=== PATIENT | female | born 1930 | race Two or more races ===

== ENCOUNTER 2017-07-17 12:53 | Inpatient (IN) | payer MEDICARE, OTHER ==
[~2017-07-17] VITALS: Ht 152.4 cm; Wt 66.5 kg
[2017-07-17] VITALS (7 sets, daily range): BP systolic 124–188; BP diastolic 73–98
--- NOTE | 2017-07-17 12:53 | NUR ---
PT ARRIVED AT 1247, NON RESPONSIVE, VSS, BIB [facility] FROM [facility] FOR [facility], UNKNOWN LAST WELL TIME. ACC. TO REPORT, SNF STAFF, PT BS 60,1 AMP OF D50 WAS GIVEN WITHOUT CHANGE TO PT MENTAL STATUS. MD AT BS, PT PUT ON MONITOR. NON RESPONSIVE FOR TACTILE STIMULATION.
--- NOTE | 2017-07-17 12:57 | NUR ---
1247- Pt in ER bed 17, Code stroke called by Dr. Lake 1256 - Pt registered in [facility], Code stroke orders placed by Dr. Lake
[2017-07-17] MEDS ORDERED: IV NS 0.9% 250 ML IV ONE (13:02)
[2017-07-17] MEDS ORDERED: CT SWABBABLE VALVE TRANS SET 1 EA INFUS.SET MC ONE (13:02)
[2017-07-17] MEDS ORDERED: IOHEXOL-350 100 ML VIAL IV ONE (13:02)
[2017-07-17 13:06] LABS: EOSINOPHILS # (AUTO) 0.1 /CMM (0.0-0.7); EOSINOPHILS % (AUTO) 0.5 % (0.0-6.0); HEMATOCRIT 22 % (33-45); LYMPHOCYTES # (AUTO) 0.4 /CMM (0.8-4.8); LYMPHOCYTES % (AUTO) 3.8 % (20.0-44.0); MEAN CORPUSCULAR HEMOGLOBIN 33 PG (26.0-33.0); MEAN CORPUSCULAR HGB CONC 31 g/dl (31.0-36.0); MEAN CORPUSCULAR VOLUME 107 fL (82-100); MONOCYTES # (AUTO) 0.7 /CMM (0.1-1.30); MONOCYTES % (AUTO) 6.6 % (2.0-12.0); NEUTROPHILS # (AUTO) 9.5 /CMM (1.8-8.9); NEUTROPHILS % (AUTO) 89.1 % (43.0-81.0); PLATELET COUNT (AUTO) 197 /CMM (150-450); RDW COEFFICIENT OF VARIATION 23.9 (11.5-15.0); RED BLOOD CELL COUNT(AUTO) 2.08 MIL/uL (4.0-5.2); WHITE BLOOD COUNT (AUTO) 10.7 K/uL (4.3-11.0)
[2017-07-17 13:08] LABS: HEMOGLOBIN 6.9 g/dL (11.5-14.8)
[2017-07-17 13:20] LABS: CALCIUM, SERUM 8.6 mg/dL (8.5-10.1); CARBON DIOXIDE 28 mmol/L (21-32); CHLORIDE 100 mmol/L (98-107); CREATININE 2.2 mg/dL (0.6-1.3); GLUCOSE 96 mg/dL (74-106); INR 1.06 (0.87-1.13); SODIUM SERUM 137 mmol/L (136-145); UREA NITROGEN, BLOOD 17 mg/dL (7-18)
[2017-07-17 13:24] LABS: CHOLESTEROL 130 mg/dL (<200); HDL CHOLESTEROL 106 mg/dL (40-60); LDL 23 mg/dL (0-99); TRIGLYCERIDES 34 mg/dL (30-150)
[2017-07-17 13:26] LABS: ALANINE AMINOTRANSFERASE 11 U/L (12-78); ALBUMIN 2.2 g/dL (3.4-5.0); ALKALINE PHOSPHATASE 100 U/L (46-116); ASPARTATE AMINOTRANSFERASE 31 U/L (15-37); BILIRUBIN,DIRECT 0.1 mg/dL (0.0-0.2); BILIRUBIN,TOTAL 0.4 mg/dL (0.2-1.0); LYMPHOCYTES % (MANUAL) 5 % (16-48); MONOCYTES % (MANUAL) 5 % (0-11.0); NEUTROPHILS % (MANUAL) 90 (42-76); TOTAL PROTEIN, SERUM 6.9 g/dL (6.4-8.2)
[2017-07-17 13:28] LABS: TROPONIN I 0.131 ng/mL (0.00-0.056)
[2017-07-17] MEDS ORDERED: DICY10CA13 PO (13:31)
[2017-07-17] MEDS ORDERED: LIDO30AD10 TP (13:31)
[2017-07-17] MEDS ORDERED: ERGO500040 PO (13:31)
[2017-07-17] MEDS ORDERED: ASPI-1152 PO (13:31)
[2017-07-17] MEDS ORDERED: LORA10TA68 PO (13:31)
[2017-07-17] MEDS ORDERED: INSU100I30 SQ (13:31)
[2017-07-17] MEDS ORDERED: ACET-868 PO (13:31)
[2017-07-17] MEDS ORDERED: HYDR-552 PO (13:31)
[2017-07-17] MEDS ORDERED: BEPO10DR EACHEYE (13:31)
[2017-07-17] MEDS ORDERED: PROT946L PO (13:31)
[2017-07-17] MEDS ORDERED: INSU100V11 SQ (13:31)
[2017-07-17] MEDS ORDERED: CILO50TA PO (13:31)
[2017-07-17] MEDS ORDERED: HYDR-4076 PO (13:31)
[2017-07-17] MEDS ORDERED: GABA-532 PO (13:31)
[2017-07-17] MEDS ORDERED: SENN-167 PO (13:31)
[2017-07-17] MEDS ORDERED: CLON0.1T PO (13:31)
[2017-07-17] MEDS ORDERED: CYCL30DR EACHEYE (13:31)
[2017-07-17] MEDS ORDERED: ASCO250T5 PO (13:31)
[2017-07-17] MEDS ORDERED: SEVE800T7 PO (13:31)
[2017-07-17] MEDS ORDERED: ATOR10TA PO (13:31)
[2017-07-17] MEDS ORDERED: POLY17PO4 PO (13:31)
[2017-07-17] MEDS ORDERED: CARV12.52 PO (13:31)
[2017-07-17] MEDS ORDERED: LEVO75TA7 PO (13:31)
[2017-07-17] MEDS ORDERED: ASPIRIN 300 MG/SUPP.RECT RC ONE ×2 (13:47→14:00)
--- NOTE | 2017-07-17 14:16 | NUR ---
PATIENT ASSIGNED TO TELE 120-1
[2017-07-17] MEDS ORDERED: IV NS 0.9% 1,000 ML IV PRN (14:50)
[2017-07-17] MEDS ORDERED: ZOLPIDEM TARTRATE 5 MG TABLET PO PRN (15:00)
[2017-07-17] MEDS ORDERED: ENOXAPARIN SODIUM 40 MG/0.4 ML DISP.SYRIN SQ SCH (15:00)
[2017-07-17] MEDS ORDERED: MAG HYDROX/AL HYDROX/SIMETH 30 ML UDC PO PRN (15:00)
[2017-07-17] MEDS ORDERED: ONDANSETRON HCL/PF 4 MG/2 ML VIAL IVP PRN (15:00)
[2017-07-17] MEDS ORDERED: HYDROCODONE/APAP 5/325MG 1 EACH TABLET PO PRN (15:00)
[2017-07-17] MEDS ORDERED: MAGNESIUM HYDROXIDE 30 ML UDC PO PRN (15:00)
--- NOTE | 2017-07-17 15:14 | NUR ---
REPORT GIVEN TO TAYLOR
[2017-07-17] MEDS ORDERED: DEXTROSE 50%-WATER 50 ML DISP.SYRIN IV PRN (15:30)
[2017-07-17] MEDS: ACETAMINOPHEN 325 MG TABLET PO PRN (16:26)
[2017-07-17] MEDS: BLOOD SUGAR DIAGNOSTIC 1 EACH STRIP IN SCH ×2 (16:27→21:47)
[2017-07-17] MEDS ORDERED: BLOOD SUGAR DIAGNOSTIC 1 EACH STRIP IN SCH ×2 (17:30→18:00)
--- NOTE | 2017-07-17 20:30 | NUR ---
SPOKE TO MD HOLA MD AWARE PT'S SBP 180-190'S, PT ON HD, WITH NEW ORDER TO D/C IV FLUIDS, AWARE OF SBP , GIVE HYDRALAZINE 10 MG IVP Q6HRS PRN IF SBP > 220, CALL MD IF PT WITH NEW ONSENT OF HEADACHE OR SOB NOTED. FAMILY AT BEDSIDE MADE AWARE.
[2017-07-17] MEDS: ATORVASTATIN 40 MG TABLET PO SCH (21:44)
[2017-07-17] MEDS: INSULIN REGULAR, HUMAN 100 UNIT/ML 3 ML VIAL SQ PRN (21:45)
[2017-07-17] MEDS: HEPARIN SODIUM, PORCINE 5000 UNITS/1 ML VIAL SQ SCH (21:46)
[2017-07-18] VITALS (11 sets, daily range): BP systolic 160–188; BP diastolic 47–89
[2017-07-18] MEDS: BLOOD SUGAR DIAGNOSTIC 1 EACH STRIP IN SCH ×6 (00:54→20:32)
--- NOTE | 2017-07-18 00:57 | NUR ---
1 UNIT PRBC TRANSFUSED, NO S/S OF ADVERSE REACTIONS NOTED.
[2017-07-18] MEDS ORDERED: hydrALAZINE HCL IV 20 MG VIAL IV PRN (01:30)
[2017-07-18] MEDS: ACETAMINOPHEN 325 MG TABLET PO PRN ×2 (01:42→08:09)
--- NOTE | 2017-07-18 07:16 | NUR ---
TD RN OPENING RECEIVED PATIENT [place] SPEAKING. NO SOB, DIFFICULTY BREATHING AND STATES PAIN IS MINIMAL AT THIS TIME AND DOES NOT NEED OR WANT ANY PAIN MEDICATIONS. PATIENT ON 3LPM NASAL CANULA 99% WILL TITRATE TOLERATED. PATIENT A/OX2-3 FORGETFUL AT TIMES HOWEVER PLEASANT. PATIENT NEEDS IN REACH. BED LOWERED AND LOCKED, RAILS UPX3 FOR SAFETY, BED ALARM ON, CALL LIGHT IN REACH. PATIENT APPEARS STABLE AT THIS TIME WILL ROUND NEEDED
[2017-07-18 07:37] LABS: CHOLESTEROL 128 mg/dL (<200); HDL CHOLESTEROL 89 mg/dL (40-60); LDL 33 mg/dL (0-99); TRIGLYCERIDES 59 mg/dL (30-150)
[2017-07-18 07:40] LABS: CALCIUM, SERUM 8.5 mg/dL (8.5-10.1); CARBON DIOXIDE 26 mmol/L (21-32); CHLORIDE 98 mmol/L (98-107); CREATININE 2.7 mg/dL (0.6-1.3); GLUCOSE 83 mg/dL (74-106); MAGNESIUM 1.9 mg/dL (1.8-2.4); PHOSPHORUS 3.9 mg/dL (2.5-4.9); POTASSIUM 3.1 mmol/L (3.5-5.1); SODIUM SERUM 133 mmol/L (136-145); UREA NITROGEN, BLOOD 19 mg/dL (7-18)
[2017-07-18 07:46] LABS: BASOPHILS # (AUTO) 0.1 /CMM (0.0-0.2); BASOPHILS % (AUTO) 0.7 % (0.0-2.0); EOSINOPHILS # (AUTO) 0.1 /CMM (0.0-0.7); EOSINOPHILS % (AUTO) 1.5 % (0.0-6.0); HEMATOCRIT 25 % (33-45); LYMPHOCYTES % (AUTO) 11.9 % (20.0-44.0); MEAN CORPUSCULAR HEMOGLOBIN 33 PG (26.0-33.0); MEAN CORPUSCULAR HGB CONC 33 g/dl (31.0-36.0); MEAN CORPUSCULAR VOLUME 101 fL (82-100); NEUTROPHILS # (AUTO) 6.5 /CMM (1.8-8.9); NEUTROPHILS % (AUTO) 74.9 % (43.0-81.0); PLATELET COUNT (AUTO) 176 /CMM (150-450); RDW COEFFICIENT OF VARIATION 25.3 (11.5-15.0); RED BLOOD CELL COUNT(AUTO) 2.42 MIL/uL (4.0-5.2); WHITE BLOOD COUNT (AUTO) 8.7 K/uL (4.3-11.0)
[2017-07-18] MEDS: ASPIRIN 81 MG TAB.CHEW PO SCH (08:04)
[2017-07-18] MEDS: HEPARIN SODIUM, PORCINE 5000 UNITS/1 ML VIAL SQ SCH ×2 (08:07→20:33)
[2017-07-18] MEDS: Z GUARD REMEDY 2 OZ OINT TP PRN (08:08)
--- NOTE | 2017-07-18 08:20 | NUR ---
TD RN NOTES MARY KATE FRAZIER RN AT BEDSIDE FOR EVAL.
--- NOTE | 2017-07-18 08:28 | NUR ---
WOUND CARE CONSULT: PT PRESENTS WITH ESCHARS TO RT ANTERIOR LOWER LEG AND LEFT HEEL, PRESENT ON ADMISSION. RECOMMENDATIONS MADE FOR SKIN PROTECTION AND DISCUSSED WITH NURSING STAFF. PT ON MULU ISOFLEX LOW AIRLOSS BED. CURRENT TRAVIS SCORE IS 14. WILL SEE PRN. GARCÍA IN AGREEMENT WITH PLAN OF CARE. Addendum: 07/18/17 at 0829 by MARY KATE CHILD WNDNU Amended: Links added.
--- NOTE | 2017-07-18 09:10 | NUR ---
TD RN NOTES DR PAREDES AT BEDSIDE FOR CONSULTATION
--- NOTE | 2017-07-18 09:36 | NUR ---
TD RN NOTES SPEECH THERAPIST AT BEDSIDE FOR EVAL
[2017-07-18 11:21] LABS: LYMPHOCYTES % (MANUAL) 10 % (16-48); MONOCYTES % (MANUAL) 7 % (0-11.0); NEUTROPHILS % (MANUAL) 79 (42-76)
--- NOTE | 2017-07-18 11:21 | NUR ---
TD RN NOTES PATIENT WORKING WITH PHYSICAL THERAPY
[2017-07-18 11:22] LABS: EOSINOPHILS % (MANUAL) 4 % (0-4)
[2017-07-18] MEDS ORDERED: LIDOCAINE 5% (PATCH) 1 EA PATCH TP PRN (11:30)
--- NOTE | 2017-07-18 12:20 | NUR ---
TD RN NOTES DR CAIN AT BEDSIDE. PER MD GIVE ORDERED HYDRALAZINE EVEN THOUGH PATIENT WILL GET HD WITHIN THE NEXT 2 OR SO HOURS. PATIENT SITTING IN CHAIR STABLE AT THIS TIME. PER MD OK TO ORDER ROBITUSSIN PRN PO Q6H 300MG FOR COUGH
[2017-07-18] MEDS: hydrALAZINE HCL 25 MG TABLET PO SCH ×3 (12:37→16:13)
[2017-07-18] MEDS: SEVELAMER CARBONATE 800 MG TABLET PO SCH ×2 (13:00→17:48)
[2017-07-18] MEDS ORDERED: GUAIFENESIN 300 MG/15 ML UDC PO PRN (13:00)
[2017-07-18] MEDS: PROSOURCE / PROSTAT (PYXIS) 30 ML UDC PO SCH ×2 (13:00→16:13)
[2017-07-18] MEDS: DICYCLOMINE HCL 10 MG CAPSULE PO SCH ×2 (13:00→16:13)
--- NOTE | 2017-07-18 13:14 | NUR ---
TD RN NOTES ASSISTED PATIENT BACK TO BED. HD RN FILIBERTO AT BEDSIDE. PATIENT STABLE 94% 1LPM NC.
--- NOTE | 2017-07-18 13:19 | NUR ---
TD RN NOTES SW AT BEDSIDE FOR EVAL
--- NOTE | 2017-07-18 13:42 | NUR ---
Central Station Operator Consult was requested from Dr. Payne in regards to stroke. Patient is an 87 year old Female who was admitted to [facility] for evaluation of an altered mental status. ADDY met with pt. and pt.s daughter Karlene ([phone]) at her bedside. Patient is oriented x2. Patient is aware of her name and situation. Patient denies any suicidal or homicidal ideation. Patient denies use of cigarettes, alcohol, or drugs. Per Dr. Og stroke was ruled out. ADDY spoke with ANNABELLE Pinto in regards to pt.s disposition and discharge plan. Plan: Patient will return to [facility] ([address] [place] [address]; ) to continue PT rehab.
[2017-07-18] MEDS: CILOSTAZOL 100 MG TABLET PO SCH ×2 (14:30→16:14)
[2017-07-18] MEDS: CARVEDILOL 12.5 MG TABLET PO SCH (16:13)
[2017-07-18] MEDS: SENNOSIDES 8.6 MG TABLET PO SCH (16:13)
[2017-07-18] MEDS: CLONIDINE HCL 0.1 MG TABLET PO PRN (17:48)
--- NOTE | 2017-07-18 17:50 | NUR ---
TD RN NOTES PATIENT BLOOD PRESSURE ELEVATED. GIVING PRN MEDICATION ORDERED. WILL MONITOR
--- NOTE | 2017-07-18 18:36 | NUR ---
TD RN CLOSING PATIENT STABLE. NO COMPLICATIONS NOTED. STABLE ON 1L NC. PATIENT WORKING WITH OT EVAL AND FAMILY AT BEDSIDE. PATIENT NEEDS IN REACH, BED LOWERED AND LOCKED, RAILS UPX3 FOR SAFETY AND BED ALARM ON. PATIENT STATES PAIN 1/10 AND TOLERABLE REFUSING TYLENOL AT THIS TIME.
--- NOTE | 2017-07-18 19:30 | NUR ---
RN INITIAL NOTES RECEIVED PT AWAKE ON BED, A/O X3, MAINLY ARABIC SPEAKING. FAMILY AT BEDSIDE. ON 2L NASAL CANNULA, SATURATING WELL, NO S/S OF RESP DISTRESS. CURRENTLY SB/SR ON THE MONITOR, HR 50-60'S. PT IS ANURIC. RIGHT CHEST WALL HD CATH INTACT. RIGHT FOREARM 20G IS FLUSHED AND PATENT, NO S/S OF INFILTRATION/INFECTION, DRESSING CDI. BED LOW AND LOCKED, SIDERAILS UP, CALL LIGHT WITHIN REACH. WILL MONITOR
[2017-07-18] MEDS: GABAPENTIN 100 MG CAPSULE PO SCH (21:11)
[2017-07-18] MEDS: ATORVASTATIN 40 MG TABLET PO SCH (21:12)
[2017-07-18] MEDS ORDERED: ATORVASTATIN 10 MG TABLET PO SCH (22:00)
[2017-07-19] VITALS: BP 189/69
[2017-07-19] MEDS: BLOOD SUGAR DIAGNOSTIC 1 EACH STRIP IN SCH ×6 (00:45→21:18)
--- NOTE | 2017-07-19 01:59 | NUR ---
RN NOTES NOTIFIED ON-CALL DR. ATKINSON OF PATIENT CURRENT BLOOD PRESSURE 189/69, HR 66. PER MD, GIVE HYDRALAZINE 10MG IVP ONE TIME.
[2017-07-19] MEDS ORDERED: hydrALAZINE HCL IV 20 MG VIAL IV ONE (02:00)
[2017-07-19 04:00] VITALS: BP 147/51
[2017-07-19 06:34] LABS: EOSINOPHILS # (AUTO) 0.2 /CMM (0.0-0.7); EOSINOPHILS % (AUTO) 2.3 % (0.0-6.0); HEMATOCRIT 24 % (33-45); LYMPHOCYTES # (AUTO) 1.8 /CMM (0.8-4.8); LYMPHOCYTES % (AUTO) 20.6 % (20.0-44.0); MEAN CORPUSCULAR HEMOGLOBIN 33 PG (26.0-33.0); MEAN CORPUSCULAR HGB CONC 33 g/dl (31.0-36.0); MEAN CORPUSCULAR VOLUME 102 fL (82-100); MONOCYTES # (AUTO) 0.8 /CMM (0.1-1.30); MONOCYTES % (AUTO) 9.6 % (2.0-12.0); NEUTROPHILS # (AUTO) 5.7 /CMM (1.8-8.9); NEUTROPHILS % (AUTO) 67.5 % (43.0-81.0); PLATELET COUNT (AUTO) 148 /CMM (150-450); RED BLOOD CELL COUNT(AUTO) 2.39 MIL/uL (4.0-5.2); WHITE BLOOD COUNT (AUTO) 8.5 K/uL (4.3-11.0)
--- NOTE | 2017-07-19 06:50 | NUR ---
RN CLOSING NOTES PT REMAINS STABLE OF THE MOMENT. ALL DUE MEDS GIVEN, AM CARE PROVIDED. WILL ENDORSE STEFANY TO AM RN
[2017-07-19 06:51] LABS: CALCIUM, SERUM 8.3 mg/dL (8.5-10.1); CARBON DIOXIDE 29 mmol/L (21-32); CHLORIDE 96 mmol/L (98-107); CREATININE 2.6 mg/dL (0.6-1.3); GLUCOSE 86 mg/dL (74-106); MAGNESIUM 1.9 mg/dL (1.8-2.4); POTASSIUM 3.3 mmol/L (3.5-5.1); SODIUM SERUM 134 mmol/L (136-145); UREA NITROGEN, BLOOD 16 mg/dL (7-18)
--- NOTE | 2017-07-19 07:15 | NUR ---
RN INITIAL NOTES: REC'D PT ASLEEP ON BED, NOT IN ANY DISTRESS, EASILY AROUSABLE, A/O X 3. ON NC AT 2LPM, NO SOB. ON TELEMONITOR, SR W/ HR 63 BPM. HAS RFA G20, SL, FLUSHING WELL, PATENT & INTACT W/ NO S/SX OF INFECTION/INFILTRATION NOTED. HAS RCW HD CATH IN PLACE. PROVIDED COMFORT & SAFETY MEASURES. BED KEPT LOW & IN LOCKED POS. CALL LIGHT PLACED W/IN REACH. WILL CONTINUE TO MONITOR & ATTEND PT NEEDS.
[2017-07-19 08:00] VITALS: BP 111/66
[2017-07-19] MEDS: hydrALAZINE HCL 25 MG TABLET PO SCH ×3 (08:27→17:22)
[2017-07-19] MEDS: SEVELAMER CARBONATE 800 MG TABLET PO SCH ×3 (08:27→17:21)
[2017-07-19] MEDS: ASPIRIN 81 MG TAB.CHEW PO SCH (08:27)
[2017-07-19] MEDS: LEVOTHYROXINE SODIUM 75 MCG TABLET PO SCH (08:27)
[2017-07-19] MEDS: SENNOSIDES 8.6 MG TABLET PO SCH ×2 (08:27→17:21)
[2017-07-19] MEDS: DICYCLOMINE HCL 10 MG CAPSULE PO SCH ×3 (08:28→17:21)
[2017-07-19] MEDS: CILOSTAZOL 100 MG TABLET PO SCH ×2 (08:29→17:21)
[2017-07-19] MEDS: CARVEDILOL 12.5 MG TABLET PO SCH ×2 (08:29→17:22)
[2017-07-19] MEDS: PROSOURCE / PROSTAT (PYXIS) 30 ML UDC PO SCH ×3 (08:29→17:24)
[2017-07-19] MEDS: POLYETHYLENE GLYCOL 3350 17 GM POWD.PACK PO SCH (08:29)
[2017-07-19] MEDS: HEPARIN SODIUM, PORCINE 5000 UNITS/1 ML VIAL SQ SCH (08:30)
[2017-07-19] MEDS: Z GUARD REMEDY 2 OZ OINT TP PRN (08:31)
[2017-07-19] MEDS: INSULIN REGULAR, HUMAN 100 UNIT/ML 3 ML VIAL SQ PRN ×4 (08:35→21:18)
[2017-07-19] MEDS ORDERED: LORATADINE 10 MG TABLET PO SCH (09:00)
[2017-07-19] MEDS ORDERED: ASPIRIN EC 81 MG TABLET.DR PO SCH (09:00)
[2017-07-19] MEDS: ACETAMINOPHEN 325 MG TABLET PO PRN ×2 (09:57→21:00)
--- NOTE | 2017-07-19 11:36 | NUR ---
RN NOTES: PT HAS HAD FREQUENT EPISODES OF NOSE BLEEDING (3X) AND HEMOPTYSIS X1. CALLED DHEERAJ KERNS. AWAITING FOR CB. Addendum: 07/19/17 at 1209 by TAYLOR ADAMS RN REC'D CALL BACK FROM [facility] W/ ORDERS TO STOP HEPARIN SQ & WILL SEE PT LATER. DTR MADE AWARE.
[2017-07-19 12:00] VITALS: BP_SYST 153; BP_SYST 156; BP_DIAS 52
[2017-07-19 16:00] VITALS: BP 111/59
[2017-07-19] MEDS ORDERED: POTASSIUM CHLORIDE 20 MEQ TAB.PRT.SR PO ONE (18:30)
[2017-07-19] MEDS ORDERED: DEXTROSE 50%-WATER 50 ML DISP.SYRIN IV PRN (19:00)
[2017-07-19] MEDS ORDERED: LORATADINE 10 MG TABLET PO PRN (19:00)
--- NOTE | 2017-07-19 19:00 | NUR ---
RN CLOSING NOTES: NO MORE EPISODE OF EPISTAXIS & HEMOPTYSIS LATER THIS PM. PT WAS ABLE TO REST. PT TOLERATED NC AT 2LPM, NO SOB. ON TELEMONITOR, STILL SR. RFA G20, SL, KEPT PATENT & INTACT W/ NO S/SX OF INFECTION/INFILTRATION NOTED. RCW HD CATH KEPT IN PLACE. JOANN ESQUEDA SEEN & EXAMINED THE PT. ALL QUESTION & CONCERNED OF THE FAMILY ADDRESSED BY THE PARAPROFESSIONAL AIDE TEACHER. RN AT BEDSIDE. KEPT WELL RESTED. NEEDS ATTENDED. BED KEPT LOW & IN LOCKED POS. CALL LIGHT PLACED W/IN REACH. ENDORSED TO PM RN FOR STEFANY.
[2017-07-19 20:00] VITALS: BP 158/64
[2017-07-19] MEDS: ATORVASTATIN 40 MG TABLET PO SCH (21:00)
[2017-07-19] MEDS: GABAPENTIN 100 MG CAPSULE PO SCH (21:01)
[2017-07-19] MEDS ORDERED: BLOOD SUGAR DIAGNOSTIC 1 EACH STRIP IN SCH (22:00)
--- NOTE | 2017-07-19 22:00 | NUR ---
TAPPER BIT - REC'D PT. ON O2/2L/NC-LUNG NETTLES HAVE DIM.RHONCHI TO AUSC. PT'S FAMILY AT BS/ASSISTING W/ADL'S. PT. STATES THAT SHE HAD RT.SIDED ABD PAIN. TYLENOL 650 MG/PO WAS ADM. AT 21:00 W/LITTLE RELIEF. PT. HAD MOD. BM & WAS ADM. A PARTIAL BEDBATH W/FAUSTO CARE GIVEN. PT.IS REFUSING A BEDBATH TILL AFTER BREAKFAST TOMORROW AM. PER FAMILY'S WISHES ALSO. PT.IS PARAGUAYAN SPEAKING ONLY & UNDERSTANDS VERY LITTLE PERSIAN. BS=#195. PT. COVERED W/3 UNITS OF REG.INSULIN. NEURO ASSESSMENTS ARE STILL Q 4 HRS. PT.IS A&OX 3-4. 2-3+ EDEMA TO BILAT. FEET. HEART MONITOR SHOWS SB/HIGH 50'S. PT. ASYMTOMATIC. CONT.POC.
[2017-07-20] VITALS: BP 172/59
[2017-07-20 04:00] VITALS: BP 176/57
--- NOTE | 2017-07-20 06:54 | NUR ---
RN CLOSING NOTE - PT. HAD 2ND BM W/PARTIAL BEDBATH ADM. W/FAUSTO CARE. PT'S SBP'S CLIMBED UP INTO THE 170'S BETWEEN MN & 4AM. HYDRAL - AZINE 10MG/SLOW IVP WAS ADM. AT 04:30AM. PT. RESTING W/EYES CLOSED FOR MOST PART OF THE NIGHT. PT.IS CURRENTLY STABLE. ALL DUE MEDS WERE ADM. AM CARE PROVIDED. WILL ENDORSE STEFANY TO DAYSHIFT RN. CONT.POC.
--- NOTE | 2017-07-20 07:15 | NUR ---
RN INITIAL NOTES: REC'D PT ASLEEP ON BED, NOT IN ANY DISTRESS, EASILY AROUSABLE, A/O X 3. ON NC AT 2LPM, NO SOB. ON TELEMONITOR, SR. HAS RFA G20, SL, FLUSHING WELL, PATENT & INTACT W/ NO S/SX OF INFECTION/INFILTRATION NOTED. HAS RCW HD CATH IN PLACE. HD ONGOING C/O AHMED. PROVIDED COMFORT & SAFETY MEASURES. BED KEPT LOW & IN LOCKED POS. CALL LIGHT PLACED W/IN REACH. WILL CONTINUE TO MONITOR & ATTEND PT NEEDS.
[2017-07-20 07:25] LABS: EOSINOPHILS # (AUTO) 0.2 /CMM (0.0-0.7); EOSINOPHILS % (AUTO) 2.3 % (0.0-6.0); HEMATOCRIT 24 % (33-45); HEMOGLOBIN 7.9 g/dL (11.5-14.8); LYMPHOCYTES # (AUTO) 1.6 /CMM (0.8-4.8); LYMPHOCYTES % (AUTO) 20.8 % (20.0-44.0); MEAN CORPUSCULAR HEMOGLOBIN 34 PG (26.0-33.0); MEAN CORPUSCULAR HGB CONC 33 g/dl (31.0-36.0); MEAN CORPUSCULAR VOLUME 103 fL (82-100); MONOCYTES # (AUTO) 0.8 /CMM (0.1-1.30); NEUTROPHILS # (AUTO) 5.1 /CMM (1.8-8.9); NEUTROPHILS % (AUTO) 66.9 % (43.0-81.0); PLATELET COUNT (AUTO) 141 /CMM (150-450); RDW COEFFICIENT OF VARIATION 25.7 (11.5-15.0); RED BLOOD CELL COUNT(AUTO) 2.33 MIL/uL (4.0-5.2); WHITE BLOOD COUNT (AUTO) 7.6 K/uL (4.3-11.0)
[2017-07-20 07:31] LABS: CALCIUM, SERUM 8.1 mg/dL (8.5-10.1); CARBON DIOXIDE 27 mmol/L (21-32); CHLORIDE 93 mmol/L (98-107); CREATININE 3.2 mg/dL (0.6-1.3); GLUCOSE 68 mg/dL (74-106); MAGNESIUM 1.8 mg/dL (1.8-2.4); PHOSPHORUS 3.3 mg/dL (2.5-4.9); POTASSIUM 3.5 mmol/L (3.5-5.1); SODIUM SERUM 131 mmol/L (136-145); UREA NITROGEN, BLOOD 27 mg/dL (7-18)
[2017-07-20 08:00] VITALS: BP 151/51
[2017-07-20] MEDS: BLOOD SUGAR DIAGNOSTIC 1 EACH STRIP IN SCH ×4 (08:35→21:14)
[2017-07-20] MEDS: SEVELAMER CARBONATE 800 MG TABLET PO SCH ×3 (08:36→17:40)
[2017-07-20] MEDS: SENNOSIDES 8.6 MG TABLET PO SCH ×2 (08:36→17:33)
[2017-07-20] MEDS: POLYETHYLENE GLYCOL 3350 17 GM POWD.PACK PO SCH (08:36)
[2017-07-20] MEDS: ASPIRIN 81 MG TAB.CHEW PO SCH (08:36)
[2017-07-20] MEDS: CILOSTAZOL 100 MG TABLET PO SCH ×2 (08:36→17:33)
[2017-07-20] MEDS: DICYCLOMINE HCL 10 MG CAPSULE PO SCH ×3 (08:36→17:33)
[2017-07-20] MEDS: PROSOURCE / PROSTAT (PYXIS) 30 ML UDC PO SCH ×3 (08:36→17:33)
[2017-07-20] MEDS: LEVOTHYROXINE SODIUM 75 MCG TABLET PO SCH (08:36)
[2017-07-20] MEDS: Z GUARD REMEDY 2 OZ OINT TP PRN (08:38)
[2017-07-20] MEDS: INSULIN REGULAR, HUMAN 100 UNIT/ML 3 ML VIAL SQ PRN ×5 (08:40→21:17)
[2017-07-20] MEDS ORDERED: VITAMINS A AND D 56.7 GM TUBE TP PRN (09:30)
[2017-07-20] MEDS: hydrALAZINE HCL 25 MG TABLET PO SCH ×3 (09:45→17:33)
[2017-07-20] MEDS: CARVEDILOL 12.5 MG TABLET PO SCH ×2 (09:46→17:33)
[2017-07-20 09:49] LABS: EOSINOPHILS % (MANUAL) 4 % (0-4); LYMPHOCYTES % (MANUAL) 11 % (16-48); MONOCYTES % (MANUAL) 7 % (0-11.0); NEUTROPHILS % (MANUAL) 78 (42-76)
--- NOTE | 2017-07-20 11:30 | NUR ---
RN NOTES: BLADDER SCAN DONE, NO OUTPUT NOTED. FAMILY MADE AWARE.
[2017-07-20 12:00] VITALS: BP 161/52
[2017-07-20] MEDS ORDERED: EPOETIN ALFA (10,000 UNIT) 10,000 UNIT/ML VIAL IV ONE (13:00)
[2017-07-20 16:00] VITALS: BP 150/37
[2017-07-20] MEDS: ACETAMINOPHEN 325 MG TABLET PO PRN (18:09)
--- NOTE | 2017-07-20 19:00 | NUR ---
RN CLOSING NOTES: NO ACUTE CHANGES W/IN SHIFT. PT TOLERATED NC AT 2LPM, NO SOB. ON TELEMONITOR, STILL SR. NEW IV LINE INSERTED ON R HAND G22, SL, KEPT PATENT & INTACT W/ NO S/SX OF INFECTION/INFILTRATION NOTED. RCW HD CATH KEPT IN PLACE. PT TOLERATED HD TODAY W/ 2L OUTPUT. VS STABLE. FAMILY AT BEDSIDE. KEPT WELL RESTED. NEEDS ATTENDED. BED KEPT LOW & IN LOCKED POS. CALL LIGHT PLACED W/IN REACH. ENDORSED TO PM RN FOR STEFANY.
--- NOTE | 2017-07-20 19:40 | NUR ---
RN NOTES RECEIVED PT IN BED. WITH FAMILY AT BEDSIDE. AOX 2-3 ABLE TO VERBALIZED FEELINGS IN MALAGASY LANGUAGE. NO ACUTE RESP DISTRESS ON O2 2LPM VIA NC. SATING 98% SR 60'S ON COLEMAN MONITOR. IV SITE ON RIGHT HAND G 22 AND RIGHT CHEST WALL HD INTACT. NO EPISODE OF HEMOPTYSIS NOTED OR ACTIVE BLEEDING. PT COMPLAINING OF ABDOMINAL PAIN. MOM WILL BE GIVEN PER FAMILY PT MIGHT CONSTIPATED. ENCOURAGED TO TURNED AND REPOSITIONED WHILE ON BED. PT IS ABLE TO HELP RIGHT AND LEFT SIDE AND GRABBED SIDE RAILS FOR POSITIONING. KEPT PT CLEAN AND COMFORTABLE ON BED. WILL MONITOR CLOSELY.
[2017-07-20 20:00] VITALS: BP 133/72
[2017-07-20] MEDS: ATORVASTATIN 40 MG TABLET PO SCH (21:09)
[2017-07-20] MEDS: GABAPENTIN 100 MG CAPSULE PO SCH (21:09)
--- NOTE | 2017-07-20 21:10 | NUR ---
RN NOTES PT AND DAUGHTER AT BEDSIDE REFUSED TO HAVE INSULIN PER FAMILY PT BS DROP DOWN IN AM AND SHE IS NOT USUALLY EATING MUCH. RISK AND BENEFITS EXPLAINED STILL REFUSED.
[2017-07-21] VITALS (7 sets, daily range): BP systolic 145–188; BP diastolic 34–54
[2017-07-21 07:02] LABS: EOSINOPHILS # (AUTO) 0.2 /CMM (0.0-0.7); EOSINOPHILS % (AUTO) 2.5 % (0.0-6.0); HEMATOCRIT 23 % (33-45); HEMOGLOBIN 7.6 g/dL (11.5-14.8); LYMPHOCYTES # (AUTO) 0.9 /CMM (0.8-4.8); LYMPHOCYTES % (AUTO) 12.1 % (20.0-44.0); MEAN CORPUSCULAR HEMOGLOBIN 34 PG (26.0-33.0); MEAN CORPUSCULAR HGB CONC 33 g/dl (31.0-36.0); MEAN CORPUSCULAR VOLUME 103 fL (82-100); MONOCYTES # (AUTO) 0.8 /CMM (0.1-1.30); MONOCYTES % (AUTO) 10.3 % (2.0-12.0); NEUTROPHILS # (AUTO) 5.7 /CMM (1.8-8.9); NEUTROPHILS % (AUTO) 75.1 % (43.0-81.0); PLATELET COUNT (AUTO) 124 /CMM (150-450); RDW COEFFICIENT OF VARIATION 25.7 (11.5-15.0); RED BLOOD CELL COUNT(AUTO) 2.26 MIL/uL (4.0-5.2); WHITE BLOOD COUNT (AUTO) 7.7 K/uL (4.3-11.0)
--- NOTE | 2017-07-21 07:13 | NUR ---
RN NOTES PT ASLEEP WELL ON BED. BREATHING EVEN AND UNLABORED. DENIES PAIN. SATING 100%. TELE MONITOR REVEALS SR HR ON 60'S. BED BATH DONE PERICARE PROVIDED 4X BUT NO EPISODE OF DIARRHEA. PT FEELS MUCH BETTER TODAY. ALL DUE MEDS GIVEN ORDERED. NO SIGNIFICANT CHANGES THROUGHOUT THE SHIFT. NO MUSCLE WEAKNESS, NO DROOPING OR DYSARTHRIA SHOWS. KEPT PT CLEAN AND DRY. ENDORSED CONTINUITY OF CARE TO AM NURSE.
[2017-07-21 07:15] LABS: CALCIUM, SERUM 7.8 mg/dL (8.5-10.1); CARBON DIOXIDE 29 mmol/L (21-32); CHLORIDE 94 mmol/L (98-107); GLUCOSE 92 mg/dL (74-106); POTASSIUM 3.7 mmol/L (3.5-5.1); SODIUM SERUM 131 mmol/L (136-145); UREA NITROGEN, BLOOD 26 mg/dL (7-18)
--- NOTE | 2017-07-21 07:48 | NUR ---
RN NOTE RECEIVED PATIENT AWAKE ALERT AND ORIENTED WITH EPISODES OF CONFUSION. SHE ABLE TO MAKE THINGS KNOW IN HIS K[place]WOCK LANGUAGE (JAPANESE). BREATHING EVEN UNLABORED, WITH NO SOB OR DISTRESS NOTED. CURRENTLY ON 2L OF O2 VIA NC SATURATION OF 95%. CURRENTLY ON HD THIS MORNING WITH RN AT BEDSIDE. ON CARDIAC MONITORING SINUS RHYTHM HR OF 68. RIGHT HAND IV SITE INTACT AND PATENT. ACCU CHECK DONE RESULTS OF 87. CONTINUE TO ASSIST ALL NEEDS AND WITH ADLS. BED LOCKED, LOW POSITIONED, PLACED CALL LIGHT WITHIN REACH.
[2017-07-21] MEDS: POLYETHYLENE GLYCOL 3350 17 GM POWD.PACK PO SCH (09:00)
[2017-07-21] MEDS: SENNOSIDES 8.6 MG TABLET PO SCH (09:00)
[2017-07-21] MEDS: CILOSTAZOL 100 MG TABLET PO SCH (09:21)
[2017-07-21] MEDS: hydrALAZINE HCL 25 MG TABLET PO SCH ×3 (09:21→21:09)
[2017-07-21] MEDS: CARVEDILOL 12.5 MG TABLET PO SCH ×2 (09:21→21:09)
[2017-07-21] MEDS: DICYCLOMINE HCL 10 MG CAPSULE PO SCH ×2 (09:21→12:58)
[2017-07-21] MEDS: ASPIRIN 81 MG TAB.CHEW PO SCH (09:22)
[2017-07-21] MEDS: BLOOD SUGAR DIAGNOSTIC 1 EACH STRIP IN SCH ×3 (09:22→22:00)
[2017-07-21] MEDS: PROSOURCE / PROSTAT (PYXIS) 30 ML UDC PO SCH ×2 (09:23→12:59)
[2017-07-21] MEDS: SEVELAMER CARBONATE 800 MG TABLET PO SCH ×2 (09:25→12:58)
[2017-07-21] MEDS: LEVOTHYROXINE SODIUM 75 MCG TABLET PO SCH (09:25)
[2017-07-21 09:55] LABS: EOSINOPHILS % (MANUAL) 2 % (0-4); LYMPHOCYTES % (MANUAL) 9 % (16-48); MONOCYTES % (MANUAL) 7 % (0-11.0); NEUTROPHILS % (MANUAL) 82 (42-76)
[2017-07-21] MEDS: ACETAMINOPHEN 325 MG TABLET PO PRN ×2 (12:03→20:56)
[2017-07-21] MEDS ORDERED: GUAI100S11 PO (15:06)
[2017-07-21] MEDS ORDERED: GABA100C PO (15:06)
[2017-07-21] MEDS ORDERED: ATOR40TA PO (15:06)
[2017-07-21] MEDS ORDERED: INSU100V28 SQ (15:06)
[2017-07-21] MEDS ORDERED: LORA10TA7 PO (15:06)
[2017-07-21] MEDS ORDERED: EPOE1VIA6 IJ (15:10)
--- NOTE | 2017-07-21 15:30 | NUR ---
RN NOTE RECEIVED ORDER FOR PATIENT TO BE D/C HOME (SNF) AFTER HER ULTRASOUND DOPPLER IS PREFORMED PER DHEERAJ QUINTERO . AWAITING FOR FURTHER DISCHARGE INSTRUCTIONS
--- NOTE | 2017-07-21 17:35 | NUR ---
RN NOTE PATIENT IN STABLE CONDITION. BEING DISCHARGED TO [facility] VIA AMBULANCE.
--- NOTE | 2017-07-21 17:36 | NUR ---
RN NOTE 1700 MEDICATION WAS NOT GIVEN TO PATIENT DUE TO TRANSFER TO SNF AND PICKED UP FROM AMBULANCE.
--- NOTE | 2017-07-21 18:15 | NUR ---
RN NOTE PATIENT CAME BACK TO [facility] VIA AMBULANCE. AMBULANCE STATED PATIENT WAS COMPLAINING OF SOB/ANXIETY. RECEIVED PATIENT STABLE CONDITION VITALS FOLLOWED: B/P 124/74, HR 63, RR 20, T 97.6, O2 SAT 97% 2L VIA NC, PAIN 0/10. PATIENT WAS PLACED BACK INTO HER ROOM 120-2. PATIENT REQUESTED TO BE PLACED IN THE CHAIR SO SHE CAN EAT HER FOOD. DAUGHTER WAS MADE AWARE. DHEERAJ DAVID WAS NOTIFIED.
--- NOTE | 2017-07-21 18:35 | NUR ---
RN NOTE TECHNICAL PLANNER JOANN CALLED BACK WITH ORDERS STAT ABGS, CHEST X-RAY, AND CT OF THE ABDOMEN WITHOUT CONTRAST. CARRIED OUT AND NOTED. RESIDENT AND FAMILY MADE AWARE.
--- NOTE | 2017-07-21 19:00 | NUR ---
RN NOTE PATIENT REMAINS IN STABLE CONDITION. PATIENT AND DAUGHTER ARE REQUESTING AND VERBALIZED TO GO BACK TO SNF TONIGHT. DAUGHTER STATED SHE WILL ACCOMPANY THE AMBULANCE TO REDUCE HER ANXIETY. JOANN ESQUEDA MADE AWARE AND AGREED . WILL ENDORSE TO NEXT SHIFT ABOUT ETA OF AMBULANCE.
--- NOTE | 2017-07-21 20:12 | NUR ---
[facility] RN NOTE AMBULANCE PERSONAL ARRIVED, REPORT GIVEN TO THEM. PT IN STABLE CONDITION. NO DISTRESS OR DISCOMFORT NOTED. DENIES PAIN. DAY SHIFT NURSE ALREADY DID THE EXIT CARE AND ALL THE DOCUMENTS SIGNED BY THE PT. PT LEFT THE ROOM VIA GURNEY WITH AMBULANCE PERSONAL TO [facility]. Addendum: 07/21/17 at 2051 by ISAIAH PATEL RN PT DID NOT LEFT YET DUE TO HIGH BP.
--- NOTE | 2017-07-21 20:15 | NUR ---
[facility] RN NOTE PT WITH HIGH BP 188/34, AMBULANCE PERSONAL DON'T WANT TO TAKE HER UNTIL B/P COMES DOWN. CHARGE NURSE INFORMED. ALSO NOTED HER RT HAND SWOLLEN, PT FEEL PAIN WHEN PRESSED. CATAPRES 0.1 MG PO GIVEN. WILL CHECK THE BP AGAIN. PER FAMILY PT DOES NOT HAVE ANY SWELLING WELL CAME BACK. DTR STATES "I NOTICED WHEN AMBULANCE PERSONAL PRESSED HER HAND AND CHECKING BP THEN NOTICED HAND SWOLLEN". ICE PACK APPLIED. WILL RECHECK BP AGAIN.
[2017-07-21] MEDS: CLONIDINE HCL 0.1 MG TABLET PO PRN (20:24)
--- NOTE | 2017-07-21 20:58 | NUR ---
[facility] RN NOTE TYLENOL 650 MG PO GIVEN FOR MINOR PAIN IN LOWER BACK 07/09. FAMILY AT BED SIDE. AMBULANCE PERSONAL STILL WAITING FOR BP TO GO DOWN.
--- NOTE | 2017-07-21 21:09 | NUR ---
[facility] RN NOTE B/P MEDS GIVEN.
--- NOTE | 2017-07-21 21:18 | NUR ---
[facility] RN NOTE BP STILL HIGH 179/39 HR 70, COREG 12.5 MG AND HYDRALAZINE 25 MG PO GIVEN. CONTINUE TO MONITOR HER.
[2017-07-21] MEDS: GABAPENTIN 100 MG CAPSULE PO SCH (22:13)
[2017-07-21] MEDS: ATORVASTATIN 40 MG TABLET PO SCH (22:14)
--- NOTE | 2017-07-21 22:14 | NUR ---
[facility] RN NOTE NORCO 1/2 TAB PO GIVEN. FOR PAIN IN LOWER BACK 11/08. ALSO B/P COMING DOWN TO 169/46 HR 62. FAMILY AT BED SIDE.
[2017-07-21] MEDS: INSULIN REGULAR, HUMAN 100 UNIT/ML 3 ML VIAL SQ PRN (22:39)
--- NOTE | 2017-07-21 23:00 | NUR ---
[facility] RN NOTE B/P CAME DOWN TO 142/42 HR 52, CHARGE NURSE INFORMED. ALSO FAMILY AND PT MADE AWARE. PT WANTS TO GO BACK TO SNF NOW. AMBULANCE CALLED. PER AMBULANCE PERSONAL WILL TEMPLATE REPRODUCTION TECHNICIAN PT BETWEEN 29 -99. FAMILY AND PT MADE AWARE. ALSO INFORMED SNF [facility].
--- NOTE | 2017-07-21 23:14 | NUR ---
[facility] RN NOTE PAIN SUBSIDED 06/11. PT SHOW NO DISTRESS OR DISCOMFORT.
--- NOTE | 2017-07-21 23:48 | NUR ---
[facility] RN NOTE RT HAND X RAY CAME AND NEGATIVE FOR FX ONLY TISSUE SWELLING. INFORMED THE PT AND FAMILY.
--- NOTE | 2017-07-22 01:05 | NUR ---
[facility] RN NOTE AMBULANCE PERSONAL CAME TO TRANSFER THE PT TO [facility]. REPORT GIVEN TO THEM AND ALSO INFORMED [facility] RN AT SNF ABOUT PT IS COMING. PT IN NO DISTRESS OR DISCOMFORT. DENIES PAIN.
--- NOTE | 2017-07-22 01:10 | NUR ---
[facility] RN NOTE PT LEFT THE ROOM VIA GURNY INSTABLE CONDITION.
== END 2017-07-22 01:10 | DRG 637 ==
LOC: ER 12:54 → TELE1 14:37 → TELE-TD 14:53 → UNDODISIN 07-21 17:35
PROVIDERS: ADMIT Registered Nurse; ATTEND Registered Nurse
PROC: 30233N1 Transfusion of Nonautologous Red Blood Cells into Peripheral Vein, Percutaneous Approach (ICD-10-PCS; principal; 2017-07-17)
PROC: 5A1D70Z Performance of Urinary Filtration, Intermittent, Less than 6 Hours Per Day (ICD-10-PCS; 2017-07-18)
PROC: 5A1D70Z Performance of Urinary Filtration, Intermittent, Less than 6 Hours Per Day (ICD-10-PCS; 2017-07-20)
PROC: 5A1D70Z Performance of Urinary Filtration, Intermittent, Less than 6 Hours Per Day (ICD-10-PCS; 2017-07-21)
DX: E11.649 Type 2 diabetes mellitus with hypoglycemia without coma (principal); I21.A1 Myocardial infarction type 2; L97.919 Non-pressure chronic ulcer of unspecified part of right lower leg with unspecified severity; L89.620 Pressure ulcer of left heel, unstageable; G92 Toxic encephalopathy; E44.0 Moderate protein-calorie malnutrition; I13.2 Hypertensive heart and chronic kidney disease with heart failure and with stage 5 chronic kidney disease, or end stage renal disease; E11.622 Type 2 diabetes mellitus with other skin ulcer; N18.6 End stage renal disease; G45.8 Other transient cerebral ischemic attacks and related syndromes; E11.22 Type 2 diabetes mellitus with diabetic chronic kidney disease; Z99.2 Dependence on renal dialysis; E78.5 Hyperlipidemia, unspecified; F03.90 Unspecified dementia, unspecified severity, without behavioral disturbance, psychotic disturbance, mood disturbance, and anxiety; I25.10 Atherosclerotic heart disease of native coronary artery without angina pectoris; I50.9 Heart failure, unspecified; K21.9 Gastro-esophageal reflux disease without esophagitis; Z86.73 Personal history of transient ischemic attack (TIA), and cerebral infarction without residual deficits; Z79.4 Long term (current) use of insulin; D64.9 Anemia, unspecified; Z68.28 Body mass index [BMI] 28.0-28.9, adult; E83.9 Disorder of mineral metabolism, unspecified; L85.3 Xerosis cutis; E11.51 Type 2 diabetes mellitus with diabetic peripheral angiopathy without gangrene; E87.6 Hypokalemia; I70.201 Unspecified atherosclerosis of native arteries of extremities, right leg; T40.2X5A Adverse effect of other opioids, initial encounter; Y92.129 Unspecified place in nursing home as the place of occurrence of the external cause
CPT/HCPCS: 36415; 70450-TC; 70496-TC; 70498-TC; 71045-TC; 73130-TC; 80048-TC; 80061-TC; 80076-TC; 82746; 82962-TC; 83735-TC; 83880; 84100-TC; 84443-TC; 84484-TC; 85025-TC; 85652-TC; 85730-TC; 86850-TC; 86921-TC; 87081-TC; 90935-TC; 92611-TC; 93307-TC; 93880-TC; 97110-TC; 97112-TC; 97116-TC; 97530-TC; A4606; J0360; J0885; J1644; J1815; J7050; P9016-BL; Q9967; Z7610